=== PATIENT | male | born 1995 | race Caucasian/White ===

== ENCOUNTER 2018-12-26 12:36 | Outpatient (CLI) | payer OTHER ==
--- NOTE | 2018-12-26 15:20 | MRI ---
MRI LEFT KNEE WITHOUT CONTRAST: HISTORY: M23.92, internal derangement of left knee. COMPARISON: None. FINDINGS: Medial meniscus: Intact. Lateral meniscus: Intact. ACL, PCL, LCL, MCL: Intact. Extensor mechanism: Quadriceps tendon, patella, and patella tendon are intact. Cartilage: Patellofemoral compartment intact. Medial compartment: Intact. Lateral compartment: Intact. The posterior flexion zones are intact. Muscles: Muscle signal and bulk are normal. Soft tissues: No popliteal bursae effusion. Normal volume of joint fluid. IMPRESSION: 1. No acute internal derangement of the knee. 2. Intact cruciate ligaments. POS: CET
== END 2018-12-26 12:37 | disposition home or self-care (01) ==
LOC: SCSMRI 12:36
PROVIDERS: ATTEND Orthopaedic Surgery
DX: M23.92 Unspecified internal derangement of left knee (principal)